=== PATIENT | female | born 1950 | race Asian ===

== ENCOUNTER 2017-05-03 09:53 | Day surgery (SDC) | payer OTHER ==
[~2017-05-03] VITALS: Ht 157.5 cm; Wt 63.9 kg
[2017-05-03 10:40] VITALS: Ht 157.5 cm; Wt 63.9 kg
[2017-05-03] MEDS ORDERED: PROTONIX (10:42)
[2017-05-03] MEDS ORDERED: METFORMIN (10:42)
[2017-05-03] MEDS ORDERED: LISINOPRIL (10:42)
[2017-05-03] MEDS ORDERED: GLIMEPIRIDE (10:42)
[2017-05-03] MEDS ORDERED: ASPIRIN (10:42)
[2017-05-03 11:17] VITALS: BP 177/74; PULSE 54; RESP 24
--- NOTE | 2017-05-03 11:46 | OPPN ---
Date/Time of Note Date/Time of Note DATE: 05/03/17 TIME: 11:44 Operative Report Preoperative Diagnosis Screening colonoscopy Postoperative Diagnosis Internal hemorrhoids No colon neoplasm is identified Operation/Procedure Performed Colonoscopy Surgeon see signature line assistant professor of mathematics None Anesthesia: moderate sedation Estimated blood loss: none Transfusion Required none Specimen None Grafts/Implants none Complications none LICHA ALCARAZ MD May 03, 2017 11:46
--- NOTE | 2017-05-03 11:46 | OPPN ---
Date/Time of Note Date/Time of Note DATE: 05/03/17 TIME: 11:44 Operative Report Preoperative Diagnosis Screening colonoscopy Postoperative Diagnosis Internal hemorrhoids No colon neoplasm is identified Operation/Procedure Performed Colonoscopy Surgeon see signature line campus administrative assistant None Anesthesia: moderate sedation Estimated blood loss: none Transfusion Required none Specimen None Grafts/Implants none Complications none LICHA ALCARAZ MD May 03, 2017 11:46
--- NOTE | 2017-05-03 11:46 | OPPN ---
Date/Time of Note Date/Time of Note DATE: 05/03/17 TIME: 11:44 Operative Report Preoperative Diagnosis Screening colonoscopy Postoperative Diagnosis Internal hemorrhoids No colon neoplasm is identified Operation/Procedure Performed Colonoscopy Surgeon see signature line appeals assistant None Anesthesia: moderate sedation Estimated blood loss: none Transfusion Required none Specimen None Grafts/Implants none Complications none LICHA ALCARAZ MD May 03, 2017 11:46
[2017-05-03] MEDS ORDERED: FENTAnyl 50 MCG/ML VIAL ONE (12:03)
[2017-05-03] MEDS ORDERED: MIDAZOLAM 1 MG/ML 2 ML INJ ONE (12:03)
--- NOTE | 2017-05-04 02:44 | GILP ---
DATE OF PROCEDURE: NAME OF PROCEDURE: Colonoscopy. SURGEON: Licha Charles MD PREOPERATIVE DIAGNOSIS: Screening colonoscopy. POSTOPERATIVE DIAGNOSES 1. Colonoscopy all the way to the cecum. 2. Internal hemorrhoids. 3. No colon neoplasm was identified. INDICATION FOR THE PROCEDURE: Ms. Josi Mercer is a 66-year-old female patient who was scheduled for screening colonoscopy. The procedure and possible complications are well explained to the patient. The patient understood and consented to the procedure. DESCRIPTION OF PROCEDURE: Under the influence of fentanyl and Versed, the colonoscope was carefully introduced in the rectum and under direct vision, it was advanced all the way to the cecum. FINDINGS: The patient had somewhat poor preparation, no neoplasm was identified. The patient was n oted to have internal hemorrhoids. She tolerated the procedure very well and there was no complication from the procedure. At the end of the procedures, she was awake with stable vital signs and she was discharged home to the care of her family. IMPRESSION: 1. Colonoscopy all the way to the cecum. 2. Poor prep making the exam somewhat suboptimal. 3. Internal hemorrhoids. 4. No colon neoplasm was identified. PLAN: Because of the poor prep and suboptimal nature of the exam, would recommend next screening co lonoscopy in 5 years. Dictated By: LICHA GRIMALDO/JUNIOR Conf#: [id number] DID#: [id number]
== END 2017-05-03 17:34 | disposition home or self-care (01) ==
LOC: GIL 09:53
PROVIDERS: ATTEND Internal Medicine Gastroenterology
DX: Z12.11 Encounter for screening for malignant neoplasm of colon (principal); K64.8 Other hemorrhoids; I10 Essential (primary) hypertension; E11.9 Type 2 diabetes mellitus without complications
CPT/HCPCS: 45378; 82962; J2250; J3010; Z7610

== ENCOUNTER 2017-09-28 06:29 | Day surgery (SDC) | END 2017-09-28 12:23 | disposition home or self-care (01) ==